=== PATIENT | male | born 1955 | race Caucasian/White ===

== ENCOUNTER 2018-10-08 05:30 | Day surgery (SDC) | payer OTHER ==
[~2018-10-08] VITALS: Ht 185.4 cm; Wt 129.5 kg
--- NOTE | ~2018-10-08 | HP ---
PATIENT: LEONARDA GILES MEDICAL RECORD: [id number] ACCOUNT: [id number] LOCATION:[facility] : 53 ADMISSION DATE: 10/08/18 PCP: MELISSA KAUFFMAN MD HISTORY AND PHYSICAL EXAMINATION CHIEF COMPLAINT: History of colon polyps. He has had no rectal bleeding, no abdominal pain. He is here for surveillance colonoscopy. ALLERGIES: PENICILLIN AND SULFA. HOME MEDICATIONS: Xanax, Lipitor, aspirin, Zyrtec, Cozaar. SOCIAL HISTORY: Nonsmoker. PAST MEDICAL AND SURGICAL HISTORY: Sleep apnea on CPAP, hypertension, atrial flutter. He has undergone an atrial ablation, sciatica, prostate cancer. He has undergone laparoscopic prostatectomy in the past, urethral sphincter. PHYSICAL EXAMINATION: GENERAL: The patient does not appear acutely ill. He does not appear chronically ill. VITAL SIGNS: Stable. HEAD: Normal. EARS: Appear normal. EYES: Extraocular movements are intact. NECK: Trachea is midline. CHEST: No intercostal retractions. PULMONARY: Nonlabored, no stridor. ABDOMEN: Nontender. IMPRESSION: History of colon polyps. PLAN: Will be surveillance colonoscopy. TRANSINT:[id number] Voice Confirmation ID: [id number] DOCUMENT ID: [id number] CC: Nabil Martinez MD Daniel Vargas MD MELISSA KAUFFMAN MD at 1522 CC: LOIS MORALES MD, DANIEL OH MD and NABIL ALBERT MD [id number] DICTATION DATE: 10/08/18 0840 [employer] OFFICER: 10/08/18 1032 [facility] 10/08/18 [place] [id number] [place] [id number]
--- NOTE | ~2018-10-08 | OP ---
PATIENT NAME: LEONARDA GILES MEDICAL RECORD: [id number] :53 LOCATION:D.OPS ADMISSION DATE: SURGEON: MELISSA KAUFFMAN MD DATE OF OPERATION: 10/08/2018 PREOPERATIVE DIAGNOSIS: History of colon polyps. POSTOPERATIVE DIAGNOSIS: History of colon polyps with 4 new colon polyps. PROCEDURES: 1. Total colonoscopy to cecum. 2. Hot biopsy forceps polypectomies times 4. SURGEON: Melissa Kauffman MD GRADUATE CIVIL ENGINEER: None. BLOOD LOSS: Minimal. ANESTHESIA: IV sedation. COMPLICATIONS: None. The reason for the anesthesia staff being present during the procedure includes history of sleep apnea as well as anxiety. The sessile polyps measured between 5 mm and 8 mm. There was one semi-pedunculated polyp which measured 1.1 cm. All polyps were removed in their entireties. ENDOSCOPIC COURSE: The patient was conveyed to the endoscopy suite electively on 10/08/2018. IV sedation was induced by the anesthesia staff. The patient was placed in the Gutierrez position. A digital rectal examination was performed. They were post-prostatectomy changes. The patient had received preoperative antibiotics due to history of urethral sphincter. A colonoscope was inserted through the anus. It was easily advanced to the cecum. The prep was excellent. I slowly withdrew the endoscope. I irrigated and aspirated extensively. I dragged the folds. A combination of normal imaging as well as narrow band imaging was utilized. The pullback was greater than an 18-minute pullback. Four hot biopsy forceps polypectomies were performed. A retroflexed view was obtained in the rectum. I then unretroflexed the scope and removed it under direct vision. I see Leonarda frequently. There is no need for him to follow up with me in the office. I will be able to get his path report and take it to his house and talk to him about the pathology directly. During his next endoscopy in 3 years, we will need to not only an upper endoscopy but also a lower. The upper endoscopy will be for Suárez's surveillance. The lower endoscopy will be for colon polyp surveillance. TRANSINT:[id number] Voice Confirmation ID: [id number] DOCUMENT ID: [id number] CC: Nabil Martinez MD Daniel Vargas MD OPERATIVE REPORT [id number] LEONARDA GILES MELISSA KAUFFMAN MD at 1522 CC: LOIS MORALES MD, DANIEL OH MD and NAIBL MARTINEZ MD [id number] DICTATION DATE: 10/08/18 1012 WIRE LOOP MACHINE OPERATOR: 10/08/18 1206 [facility] 10/08/18 [facility] [address] [place] [address]
[~2018-10-08 05:30] MED LIST: LIPITOR40 MG PO; XANAX0.5 MG PO
[2018-10-08] MEDS ORDERED: BAYER CHEWABLE81 MG PO (06:22)
[2018-10-08] MEDS ORDERED: XANAX1 MG PO (06:22)
[2018-10-08] MEDS ORDERED: ZYRTEC10 MG PO (06:23)
[2018-10-08] MEDS ORDERED: COZAAR50 MG PO (06:23)
[2018-10-08] MEDS ORDERED: COLACE100 MG PO (06:24)
[2018-10-08 06:34] VITALS: BP 130/70; Ht 185.4 cm; Wt 129.5 kg
== END 2018-10-08 10:15 | disposition home or self-care (01) ==
LOC: D.OPS 05:30
DX: D12.5 Benign neoplasm of sigmoid colon (principal); D12.8 Benign neoplasm of rectum; K63.5 Polyp of colon; G47.30 Sleep apnea, unspecified; I10 Essential (primary) hypertension; I48.92 Unspecified atrial flutter; Z86.010 Personal history of colon polyps; Z79.82 Long term (current) use of aspirin; Z79.899 Other long term (current) drug therapy; Z88.0 Allergy status to penicillin; Z88.2 Allergy status to sulfonamides; Z01.812 Encounter for preprocedural laboratory examination

== ENCOUNTER → 2018-11-22 18:29 | Outpatient (CLI) | payer OTHER ==
[2018-11-14 20:04] VITALS: BMI 39.6
[~2018-11-22 18:29] MED LIST changes: +BAYER CHEWABLE81 MG PO; +COLACE100 MG PO; +COZAAR50 MG PO; +XANAX1 MG PO; +ZYRTEC10 MG PO
== END | disposition home or self-care (01) ==
LOC: D.LABREF 18:29
DX: R31.9 Hematuria, unspecified (principal); D72.829 Elevated white blood cell count, unspecified

== ENCOUNTER → 2018-12-03 14:33 | Outpatient (CLI) | payer OTHER ==
[2018-11-14 20:04] VITALS: BMI 39.6
== END | disposition home or self-care (01) ==
LOC: D.CT 14:33
DX: N20.0 Calculus of kidney (principal)

== ENCOUNTER → 2018-12-25 09:34 | Outpatient (CLI) | payer OTHER ==
[2018-11-14 20:04] VITALS: BMI 39.6
== END | disposition home or self-care (01) ==
LOC: D.CT 09:34
PROVIDERS: ATTEND Urology
DX: N20.0 Calculus of kidney (principal)

== ENCOUNTER 2019-07-16 20:04 | Emergency (ER) | payer OTHER ==
[~2019-07-16] VITALS: Ht 185.4 cm; Wt 131.8 kg
[2019-07-16 20:25] VITALS: Ht 185.4 cm; Wt 131.8 kg
[2019-07-16] MEDS ORDERED: FLOMAX0.4 MG PO ×2 (20:27→21:48)
[2019-07-16 23:05] VITALS: BP 138/81
== END 2019-07-16 22:06 | disposition home or self-care (01) ==
LOC: D.ER 20:04
DX: R33.9 Retention of urine, unspecified (principal); N20.0 Calculus of kidney; I10 Essential (primary) hypertension

== ENCOUNTER 2019-07-19 07:03 | Emergency (ER) | payer OTHER ==
[~2019-07-19] VITALS: Ht 185.4 cm; Wt 131.8 kg
[~2019-07-19 07:03] MED LIST changes: +FLOMAX0.4 MG PO
[2019-07-19 07:08] VITALS: Ht 185.4 cm; Wt 131.8 kg
[2019-07-19 07:55] VITALS: BP 132/74
== END 2019-07-19 07:55 | disposition home or self-care (01) ==
LOC: D.ER 07:03
DX: T83.098A Other mechanical complication of other urinary catheter, initial encounter (principal); Y84.9 Medical procedure, unspecified as the cause of abnormal reaction of the patient, or of later complication, without mention of misadventure at the time of the procedure

== ENCOUNTER → 2019-07-23 19:29 | Outpatient (CLI) | payer OTHER ==
[2019-07-19 07:08] VITALS: BMI 38.3
== END | disposition home or self-care (01) ==
LOC: D.LABREF 19:29
PROVIDERS: ATTEND Urology
DX: N20.0 Calculus of kidney (principal)

== ENCOUNTER → 2019-08-08 15:12 | Outpatient (CLI) | payer OTHER ==
[2019-07-19 07:08] VITALS: BMI 38.3
== END | disposition home or self-care (01) ==
LOC: D.LABREF 15:12
PROVIDERS: ATTEND Urology
DX: R31.9 Hematuria, unspecified (principal)